=== PATIENT | male | born 1955 | race Caucasian/White ===

== ENCOUNTER 2021-09-13 05:34 | Outpatient (RCR) | payer MEDICARE, OTHER ==
[~2021-09-13] VITALS: Ht 193 cm; Wt 137.0 kg
[~2021-09-13 05:34] MED LIST: ASP81TEC PO; ATOR20TA66 PO; AVADART; BETA BLOCKER; CPR500T PO; DILT240C87 PO; FLUT9.9S16 NS; HYDR12.56 PO; LANS30CA PO; MAGN400C PO; METO-333 PO; OXYC-281 PO; POTA99TA21 PO; SILO4CAP PO; TMSL.4C PO
== END 2021-09-13 13:46 | disposition home or self-care (01) ==
LOC: PREOP 05:34
PROVIDERS: ATTEND Surgery
DX: Z01.812 Encounter for preprocedural laboratory examination (principal); K21.9 Gastro-esophageal reflux disease without esophagitis; Z20.822 Contact with and (suspected) exposure to COVID-19; Z86.010 Personal history of colon polyps
CPT/HCPCS: 87635

== ENCOUNTER 2021-09-17 10:01 | Day surgery (SDC) | payer MEDICARE, OTHER ==
[~2021-09-17] VITALS: Ht 193 cm; Wt 137.0 kg
[~2021-09-17 10:01] MED LIST changes: -POTA99TA21 PO; +POTA99TA26 PO
--- OUTSIDE RECORDS SUMMARY | 2021-09-17 10:04 | XMS REPORT | Clinical Summary ---
Author Author [facility] Organization [facility] Address Unknown Phone Unavailable Care Team Providers Care Resin Painter Name Role Phone Naomi Joy MD PCP Karo Heredia RN Unavailable Unavailable Debbie Zayas RN Unavailable Unavailable Source Comments Some departments are not documenting in the electronic medical record. If you d o not see the information that you expected, contact Release of Information in [facility] [employer] Information Management department at [phone] for further assistan ce in locating additional records.[facility] Allergies No known active allergies Medications End Date Status Medication Sig Dispensed Refills Start Date Active dutasteride (AVODART) 0.5 Take 0.5 mg 0 mg capsule by mouth daily. Active lansoprazole DR(+) Take 30 mg by 0 (PREVACID) 30 mg capsule mouth daily. Active silodosin(+) (RAPAFLO) 8 Take 8 mg by 0 mg capsule mouth daily. Active aspirin EC 81 mg tablet Take 1 Tab by 90 Tab 3 mouth daily. 4 Active atorvastatin (LIPITOR) 20 Take 1 Tab by 90 Tab 3 mg tablet mouth daily. 4 Active hydroCHLOROthiazide 1 Cap twice 180 Cap 3 (HYDRODIURIL) 12.5 mg daily. 7 capsule Active metoprolol tartrate TAKE 1 TABLET 60 Tab 5 03/27 (LOPRESSOR) 25 mg tablet BY MOUTH 7 TWICE DAILY Active potassium chloride SR Take 10 mEq 0 (K-DUR) 10 mEq tablet by mouth daily. Take with a meal and a full glass of water. Active Problems Problem Noted Date CAD (coronary artery disease) 10/23/2014 Overview: Formatting of this note might be differ ent from the original. 10/23/[address] Colvin: Moderate 60-70% Diagonal disease, mild RCA plaquing. No disease To LM, LAD or Co-dominant Cx. Chronic anticoagulation, on Xarelto 10/18/2014 Dyspnea 03/30/2013 Last Assessment & Plan: Formatting of this note might be differ ent from the original. He continues to complain of dyspnea. He underwent post ablation CCTA today. We will assess for pulmonary vein steno sis. He does have moderate calcified coronary artery plaque on his previous CCTA. He underwent stress imaging in [place] in July per his report. If he continues to have dyspnea, may warrant repeat stress imaging to rule o ut ischemia. Obstructive sleep apnea 12/22/2012 Overview: Formatting of this note might be differ ent from the original. Uvulectomy - improved symptoms L ast Assessment & Plan: Formatting of this note might be differ ent from the original. Schedule patient for a sleep study with watchpat device History of esophageal ulcer 09/07/2012 Overview: Formatting of this note might be differ ent from the original. ~2000 GERD (gastroesophageal reflux disease) 09/07/2012 Chest pain 09/07/2012 Overview: Formatting of this note might be differ ent from the original. Late had chest pain with negative heart cath. EGD positive for esophageal ulcer L ast Assessment & Plan: Formatting of this note might be differ ent from the original. Given his risk factors, symptoms, and t hat he had CAD noted in 3 vessels on his CCTA, further evaluation is warrant ed. He will be scheduled for stress imaging to assess for ischemia in the n ext couple of weeks. PAF (paroxysmal atrial fibrillation) Overview: Formatting of this note is different fr om the original. 08/06 History PAF without structural he art disease, followed [facility]na Resend[place] . Now has increasing episodes and sympt omatic. Euthyroid. On cardizem and ASA. 08/19/12 Exercise stress nuclear EF 66 %. Normal EKG response to exercise, and normal MPI 08/19/12. Echocardiogram LA 5.0 cm Nor mal left ventricular function and pulmonary artery pressures, no valve di sease 09/07/[address] Galvan-Jackson kapoor symptomatic paroxysmal atrial fibrillation. AF during a normal stress test. CHADS score 1. Started flecainide 150 mg p.o. b.i.d. and switc hed out his Cardizem to metoprolol 25 mg p.o. b.i.d. as he has been experi encing significant lower extremity edema from his Cardizem. Xarelto 20 mg once a day and discontinue his aspirin. 10/11/12 CTA-normal pulmonary vein lj keisha. Mildly enlarged left atrium without evidence of left atrial appenda ge thrombus. 12/22/12 Afib ablation, SVC/RA junction ablation. Discharged on flecainide and xarelto 12/23/12 EVR - sinus rhythm. No atrial f ibrillation noted 06/19/16 EVM: 03/22/13 CCTA - Stable tiny nodule in th e right lower lobe. Normal pulmonary venous anatomy. Moderate biatrial enlar gement; interatrial septum is intact. The left atrial and right atria l appendages are free of thrombus. The diaphragms are in the normal inspir atory position. Three vessel coronary calcification is present. 03/22/13 - Per patient report and EVR tr ansmissions, he has had no further recurrence of atrial fibrillation. Will discontinue his flecainide at this time and continue to monitor. 07/05/13 - EVR: Monitored for 35 days fr om 07/05/13 - 08/09/13 for a total of 4, of which there were 3 episodes of pa roxysmal atrial fibrillation noted. Continue xarelto 04/25/14 not sure if the symptoms of ches t tightness and near syncope are similar to the symptoms he had with his atrial fibrillation. Plan 30 days of non-looping monitoring. 05/24/14 declined monitor 11/14/14: Pt has recently noticed "dark brownish-colored sputum in am" which clears after 1st cough, and "brusing ea sily", after starting baby ASA. (Baby ASA started 10/23/15) - Encourage d to continue on xarelto/ASA combination until OV w DJL on 12/26/14. 02/23/15 Holter: excellent rhythm control . 06/19/16 EVM: A looping event recorder i s utilized for 13 days to evaluate for AFib. The first transmission is sin us at 80 with 1 PAC. The second transmission is sinus in the 70s. The re are multiple APCs. There are multiple short runs. There were 12 se conds of AFib, that it is almost 150 bpm. L ast Assessment & Plan: Formatting of this note might be differ ent from the original. In Rhythm control S/p ablation Continue same management-No AC or any a ntiarrythmic drugs Would schedule a loop recorder for 1 we ek HTN (hypertension) Last Assessment & Plan: Formatting of this note might be differ ent from the original. Well controlled on current therapy. Hyperlipidemia Last Assessment & Plan: Formatting of this note might be differ ent from the original. He is due for his labs. He was given a lab order to obtain lipids when he is next fasting. Medical History Medical History Date Comments HTN (hypertension) Hyperlipemia Esophageal ulcer 09/07/2012 GERD (gastroesophageal reflux disease) 09/07/2012 Chest pain 09/07/2012 Paroxysmal atrial fibrillation (HCC) History of esophageal ulcer 09/07/2012 ~1999 Hyperlipidemia Obstructive sleep apnea 12/22/2012 Uvulectomy - i mproved symptoms PAF (paroxysmal atrial fibrillation) 08/06 History PAF without structural heart (HCC) disease, followed Dr Mega Issa, Mirna, JOHN . Now has increasing episodes and sympt omatic. Euthyroid. On cardizem and ASA. 2 Exercise stress nuclear EF 66%. Normal EKG resp onse to exercise, and normal MPI 08/19/12. Echo cardiogram LA 5.0 cm Normal left ventricular funct ion and pulmonary artery pressures, no valve di sease 09/07/12 consult wi Chronic anticoagulation, on Xarelto 10/18/2014 Family History Medical History Relation Name Comments Coronary Artery Disease Brother Hypertension Brother Sudden Cardiac Brother Coronary Artery Disease Brother Hypertension Brother Armin Diabetes Sister Relation Name Status Comments Brother OR (Age 58) Brother Brother Armin Alive Father COPD (Age 76) Mother Alzheimer's (Age 82) Sister Cancer (Age 55) Sister Social History Date Tobacco Use Types Packs/Day Years Used Never Smoker Smokeless Tobacco: Never Used Comments Alcohol Use Standard Drinks/Week No 0 (1 standard drink = 0.6 o z pure alcohol) Sex Assigned at Date Recorded Not on file Last Filed Vital Signs Reading Time Taken Comments Vital Sign 134/60 06/06/2016 1:23 PM CDT Blood Pressure 73 06/06/2016 1:23 PM CDT Pulse 36.4 C (97.5 F) 10/23/2014 7:29 PM VEHICLE CONTROLS ENGINEER Temperature - - Respiratory Rate 97% 10/23/2014 7:29 PM VEHICLE CONTROLS ENGINEER Oxygen Saturation - - Inhaled Oxygen Concentration 134.7 kg (297 lb) 05/21/2017 10:26 AM CDT Weight 193 cm (6' 4") 05/21/2017 10:26 AM CDT Height 36.15 05/21/2017 10:26 AM CDT Body Mass Index Plan of Treatment Health Maintenance Due Date Last Done Comments DTAP/TDAP VACCINES (1 - 1973 Tdap) HEPATITIS C SCREENING 1973 PHYSICAL (COMPREHENSIVE) 1973 EXAM COLORECTAL CANCER 2005 SCREENING SHINGLES RECOMBINANT 2005 VACCINE (1 of 2) PNEUMONIA (PPSV23) 2020 VACCINE (1 of 1 - PPSV23) INFLUENZA VACCINE 05/26/2021 Results Not on filefrom Last 3 Months Insurance Type Payer Benefit Subscriber ID Effective Phone Address Plan / Dates Group PPO [employer] [facility] [id number] 2012-P [phone] [address] [place] [address] [id number] Advance Directives Patient Multi Skilled Operator Explanation Type Date Recorded Advance 10/23/2014 8:56 AM Directive/DPOA Advance Directives 06/23/2013 9:57 AM and Living Will Advance Directives 05/04/2013 11:02 AM and Living Will Advance Directives 03/22/2013 2:52 PM and Living Will Advance Directives 02/09/2013 3:12 PM and Living Will Advance Directives 02/09/2013 3:23 PM and Living Will Advance Directives 12/23/2012 10:23 AM and Living Will Advance Directives 10/25/2012 12:33 PM and Living Will Advance Directives 10/22/2012 2:15 PM and Living Will Advance Directives 10/04/2012 12:30 PM and Living Will Advance Directives 08/05/2012 2:34 PM and Living Will Date Inactivated Comments Code Status Date Activated 12/24/2012 5:05 AM Full Code 12/22/2012 9:10 AM Provider has discussed Code Status No, more discussi on w/Patient or Family? needed Care Teams Start Date End Date Resin Painter Relationship Specialty 12/22/12 Naomi Joy MD PCP - [address] [place], [place] [phone] 10/18/14 Karo Heredia RN Cardiovascul ar Disease 10/23/14 Debbie Zayas RN
[2021-09-17] MEDS ORDERED: LACTATED RINGERS 1,000 ML IV ONE (10:06)
[2021-09-17] MEDS ORDERED: LACTATED RINGERS 1,000 ML IV STA (10:08)
[2021-09-17] MEDS ORDERED: HURRICAINE EXT TUBE (BENZOCAINE) XX PRN (10:15)
--- NOTE | 2021-09-17 10:36 | Progress Note-Pre Operative ---
Pre-Operative Progress Note H&P Reviewed The H&P was reviewed, patient examined and no changes noted. Date Seen by Provider: Sep 17, 2021 Time Seen by Provider: 10:35 Date H&P Reviewed: Sep 17, 2021 Time H&P Reviewed: 10:35 Pre-Operative Diagnosis: gerd, screening colonoscopy FREDERIC TORRES DO Sep 17, 2021 10:35
[2021-09-17] MEDS ORDERED: ceFAZolin 2 GM IV Premixed 50 ML IV ONE (10:45)
[2021-09-17 11:00] VITALS: BP 174/83
[2021-09-17] MEDS ORDERED: MIDAZOLAM 2 MG/2 ML (VERSED) VIAL ONE (11:59)
[2021-09-17] MEDS ORDERED: PROPOFOL INJECTION 50 ML IV ONE ×2 (11:59→12:24)
[2021-09-17 13:15] VITALS: BP 135/73
[2021-09-17 13:20] VITALS: BP_SYST 158; BP_SYST 165; BP_DIAS 87; BP_DIAS 91
--- NOTE | 2021-09-17 13:24 | Progress Note-Post Operative ---
Post-Operative Progess Note Surgeon (s)/Lens Matcher (s) Surgeon FREDERIC TORRES DO Lens Matcher: na Pre-Operative Diagnosis gerd, screening colonoscopy Post-Operative Diagnosis Gastric polyps, transverse colon polyp, sigmoid polyps, rectal polyp, diverticulosis, hemorrhoids Procedure & Operative Findings Date of Procedure 09/17/21 Procedure Performed/Findings EGD with snare polypectomy x2 and ge biopsy; colonosscopy with hot biopsy polypectomy x2, snare polypectomy x4 with [place] inking Anesthesia Type per DIRECTOR ERP Estimated Blood Loss Estimated blood loss (mL): none Specimens/Packing Specimens Removed gastric antral polyp x1, gastric body polyp x1, GE junction, transverse colon polyp x1, sigmoid polyp x4, rectal polyp x1 FREDERIC TORRES DO Sep 17, 2021 13:24
--- NOTE | 2021-09-17 13:37 | Discharge Inst-Simple/Standard ---
Discharge Inst-Standard Discharge Medications New, Converted or Re-Newed RX: RX on Chart Patient Instructions/Follow Up Plan of Care/Instructions/FU: 2 weeks ozzie Activity as Tolerated: Yes Discharge Diet: Regular Diet (high fiber) FREDERIC TORRES DO Sep 17, 2021 13:37
[2021-09-17 13:50] VITALS: BP 183/105
--- NOTE | 2021-09-17 13:56 | Anesthesia-General Post-Op ---
MAC Patient Condition Mental Status/LOC: Same as Preop Cardiovascular: Satisfactory Nausea/Vomiting: Absent Respiratory: Satisfactory Pain: Controlled Complications: Absent Post Op Complications Complications None Follow Up Care/Instructions Patient Instructions None needed. Anesthesiology Discharge Order Discharge Order Patient is doing well, no complaints, stable vital signs, no apparent adverse anesthesia problems. No complications reported per nursing. MOON QUEZADA CRNA Sep 17, 2021 13:56
[2021-09-17 14:05] VITALS: BP 183/105
--- NOTE | 2021-09-17 21:26 | OPERATIVE REPORT ---
DATE OF SERVICE: 09/17/2021 PREOPERATIVE DIAGNOSES: Gastroesophageal reflux disease, screening colonoscopy. POSTOPERATIVE DIAGNOSES: Gastric polyps, transverse colon polyp, sigmoid polyp, rectal polyp, diverticulosis, hemorrhoids. PROCEDURE: EGD with snare polypectomy x2 and GE junction biopsy, colonoscopy with hot biopsy polypectomy x2, snare polypectomy x4 without any inking. SURGEON: Frederic Azevedo DO ANESTHESIA: Per DYE RANGE FEEDER. ESTIMATED BLOOD LOSS: None. COMPLICATIONS: None. INDICATIONS: The patient is a 66-year-old male needing screening colonoscopy and has GERD symptoms. She understands risks and benefits of procedure and wished to proceed. Consent was signed in the chart. DESCRIPTION OF PROCEDURE: The patient was taken to the endoscopy suite, placed in left lateral recumbent position. Timeout was performed. Scope was inserted in mouth, down the esophagus, stomach and into the duodenum without difficulty. There were no polyps, masses or ulcerations within the duodenum. Scope was slowly retracted back into the stomach where it was further insufflated. There were polyps and also right at the pyloric opening in the antrum larger polyp, which had herniated through the pylorus and this was able to be snared and removed. Scope was retroflexed noting no other pathology. There were other polyps present. Another inflammatory appearing polyp was present, which snare polypectomy was performed also in the body of the stomach. Scope was then slowly retracted back at the GE junction. No polyps, masses or ulcerations. Biopsy of the GE junction was obtained. Scope was slowly retracted back until completely removed. The patient then had colonoscopy performed. Digital rectal exam was performed. There were no palpable polyps, masses or ulcerations. There were some hemorrhoids present. Scope was inserted in the rectum and advanced all the way to cecum with minimal difficulty. Prep was adequate. Scope was slowly retracted back. No polyps, masses or ulcerations within the cecum, ascending colon and the transverse colon. Larger polyp was present, which snare polypectomy was performed. Scope was then continued slowly retracted back. No polyps, masses or ulcerations within the descending colon. In the sigmoid colon, small polyp was present, which hot biopsy polypectomy was performed. Another large pedunculated polyp was present, which snare polypectomy was performed just distal to this area. This was then tattooed until 2 mL were injected in 1 mL on two locations. There was another polyp, which hot biopsy polypectomy was performed. Scope was then slowly retracted back in the sigmoid colon, which another polyp had snare polypectomy performed. Also within this area was moderate amount of diverticulosis. The scope was then continuously retracted back in the rectum where another polyp was present, which snare polypectomy was performed. Scope was retroflexed noting hemorrhoidal disease. No other pathology. Scope was then returned to its normal position, slowly withdrawn until completely removed. RECOMMENDATIONS: The patient will follow up on pathology. The patient will need repeat colonoscopy in one year to reevaluate the colon. We will recommend high fiber diet. Further recommendations pending biopsy results. Job ID: [id number] DocumentID: [id number] Dictated Date: 09/17/2021 13:35:21 Resin Filterer Date: 09/17/2021 21:25:14 Dictated By: FREDERIC AZEVEDO DO
== END 2021-09-17 14:00 ==
LOC: ENDO 10:01
PROVIDERS: ATTEND Surgery
DX: Z12.11 Encounter for screening for malignant neoplasm of colon (principal); D12.5 Benign neoplasm of sigmoid colon; K31.7 Polyp of stomach and duodenum; K62.1 Rectal polyp; K57.30 Diverticulosis of large intestine without perforation or abscess without bleeding; K64.9 Unspecified hemorrhoids; K29.50 Unspecified chronic gastritis without bleeding; K21.00 Gastro-esophageal reflux disease with esophagitis, without bleeding; I10 Essential (primary) hypertension; I48.91 Unspecified atrial fibrillation; G47.33 Obstructive sleep apnea (adult) (pediatric); E66.9 Obesity, unspecified; E78.00 Pure hypercholesterolemia, unspecified; Z79.899 Other long term (current) drug therapy; Z79.82 Long term (current) use of aspirin; Z79.02 Long term (current) use of antithrombotics/antiplatelets; Z68.36 Body mass index [BMI] 36.0-36.9, adult